=== PATIENT | female | born 1990 | race Caucasian/White ===

== ENCOUNTER 2020-07-15 18:17 | Emergency (ER) | payer OTHER ==
[~2020-07-15] VITALS: Ht 157.5 cm; Wt 59.1 kg
[2020-07-15 18:30] VITALS: BP 158/87
== END 2020-07-15 18:39 | disposition left against medical advice (07) ==
LOC: EMS 18:19
DX: T40.4X1A Poisoning by other synthetic narcotics, accidental (unintentional), initial encounter (principal); Y92.89 Other specified places as the place of occurrence of the external cause
CPT/HCPCS: 99283; Z7502